=== PATIENT | male | born 1990 | race Two or more races ===

== ENCOUNTER 2016-11-19 21:50 | Emergency (ER) | payer OTHER ==
[~2016-11-19] VITALS: Ht 188 cm; Wt 136.1 kg
[2016-11-19 21:57] VITALS: BP 148/87
[2016-11-20] MEDS ORDERED: IBUPROFEN 800 MG TAB PO ONE (01:15)
== END 2016-11-20 01:40 | disposition home or self-care (01) ==
LOC: ER 21:57
DX: S96.812A Strain of other specified muscles and tendons at ankle and foot level, left foot, initial encounter (principal); Z90.89 Acquired absence of other organs; X58.XXXA Exposure to other specified factors, initial encounter; Y93.67 Activity, basketball; Y99.8 Other external cause status; Y92.89 Other specified places as the place of occurrence of the external cause
CPT/HCPCS: 29515; 73630